=== PATIENT | male | born 1980 | race Caucasian/White ===

== ENCOUNTER 2017-11-13 16:32 | Inpatient (IN) | payer MEDICAID ==
[~2017-11-13] VITALS: Ht 170.2 cm; Wt 68.0 kg
[~2017-11-13 16:32] MED LIST: DOCU-28 PO; HYDR25SU32 RC; MESA800T3 PO; NO HOME MEDS; ONDA4TAB59 PO; ONDA4TAB6 PO; ONDA8TAB9 PO; OXYC5CAP19 PO
[2017-11-13] MEDS ORDERED: acetaminophen 325mg tablet PO STA (16:42)
[2017-11-13] MEDS ORDERED: oseltamivir phos 75mg capsule PO ONE (16:45)
[2017-11-13] MEDS ORDERED: normal saline 1000ML IV soln IV ONE (16:45)
[2017-11-13 17:15] LABS: BASOPHILS # (AUTO) 0.1 X10'3 (0-0.2); BASOPHILS % (AUTO) 0.6 % (0-1); EOSINOPHILS % (AUTO) 0.3 % (0-6); HEMATOCRIT 38.4 % (42.0-52.0); HEMOGLOBIN 13.1 g/dl (14.0-17.9); LYMPHOCYTES # (AUTO) 1.4 X10'3 (1.1-4.8); LYMPHOCYTES % (AUTO) 13.8 % (21-51); MEAN CORPUSCULAR HEMOGLOBIN 28.6 PG (27.0-31.0); MEAN CORPUSCULAR HGB CONC 34.2 % (33.0-36.5); MEAN CORPUSCULAR VOLUME 83.8 FL (78-98); MEAN PLATELET VOLUME 7.5 FL (7.4-10.4); MONOCYTES # (AUTO) 0.7 X10'3 (0-0.9); MONOCYTES % (AUTO) 6.9 % (2-12); NEUTROPHILS # (AUTO) 7.9 X10'3 (1.8-7.7); NEUTROPHILS % (AUTO) 78.4 % (42-75); PLATELET COUNT 287 X10'3 (140-440); RED BLOOD COUNT 4.58 X10'6 (4.70-6.10); RED CELL DISTRIBUTION WIDTH 14.1 % (11.5-14.5); WHITE BLOOD COUNT 10.1 X10'3 (4.5-11.0)
[2017-11-13 17:27] LABS: ALANINE AMINOTRANSFERASE 72 U/L (12-78); ALBUMIN 3.6 G/DL (3.4-5.0); ALBUMIN/GLOBULIN RATIO 0.9 (1.1-1.5); ALKALINE PHOSPHATASE 95 IU/L (46-116); ANION GAP 7 (8-16); ASPARTATE AMINO TRANSFERASE 41 U/L (10-37); BILIRUBIN,TOTAL 0.4 MG/DL (0.1-1.0); BLOOD UREA NITROGEN 12 MG/DL (7-18); BUN/CREATININE RATIO 13.5 (5.4-32.0); CALCIUM 8.5 MG/DL (8.5-10.1); CHLORIDE 95 MMOL/L (99-107); CREATININE 0.89 MG/DL (0.60-1.10); GLUCOSE 100 MG/DL (70-104); POTASSIUM 3.4 MMOL/L (3.5-5.1); SODIUM 131 MMOL/L (135-145); TOTAL CARBON DIOXIDE 29.4 MMOL/L (24-32); TOTAL PROTEIN 7.7 G/DL (6.4-8.2); eGFR > 90 ML/MIN
[2017-11-13] MEDS ORDERED: levoFLOXACIN-Levaquin 750MG/D5 150 ML IV STA (18:53)
[2017-11-13] MEDS ORDERED: azithromycin/NS 500mg/250ml 250 ML IV ONE (18:55)
[2017-11-13] MEDS ORDERED: normal saline 1000ML IV soln IVB ONE (18:55)
[2017-11-13] MEDS ORDERED: HYDROmorphone inj. 0.5 MG/0.5 ML DISP.SYRIN IV PRN ×2 (20:35)
[2017-11-13] MEDS ORDERED: magnesium hydroxide 30ml (MOM) UD suspension PO PRN (20:35)
[2017-11-13] MEDS ORDERED: diphenhydrAMINE 25mg capsule PO PRN (20:35)
[2017-11-13] MEDS ORDERED: metoclopramide 5 mg/ml inj IV PRN (20:35)
[2017-11-13] MEDS ORDERED: morphine 2 MG/ML inj. syringe IV PRN ×2 (20:35)
[2017-11-13] MEDS ORDERED: mag hydrox/Alum hydrox/simeth 30ml oral suspension PO PRN (20:35)
[2017-11-13] MEDS ORDERED: HYDROcodone/acetaminophen 10/325mg tab PO PRN (20:35)
[2017-11-13] MEDS ORDERED: diphenhydrAMINE 50 mg/ml inj IV PRN (20:35)
[2017-11-13] MEDS ORDERED: HYDROcodone/acetaminophen 5mg/325mg tablet PO PRN (20:35)
[2017-11-13] MEDS ORDERED: bisacodyl 10mg suppository rectal RC PRN (20:35)
[2017-11-13] MEDS ORDERED: ondansetron/PF 4mg/2ml inj IV PRN (20:35)
[2017-11-13] MEDS ORDERED: acetaminophen 325mg tablet PO PRN ×2 (20:35)
[2017-11-13] MEDS: K and/or MAG REPLACEMENT MC SCH (20:40)
[2017-11-13] MEDS ORDERED: potassium Cl 40MEQ/NS 500ml 500 ML IV PRN ×2 (20:40)
[2017-11-13] MEDS ORDERED: potassium Cl 20 mEq SR tablet PO PRN ×2 (20:40)
[2017-11-13] MEDS ORDERED: ondansetron 4mg rapidly disintigrating tab PO PRN ×2 (20:45)
[2017-11-13] MEDS: normal saline 1000ml 1,000 ML IV SCH (20:49)
[2017-11-13] MEDS ORDERED: ondansetron 4mg rapidly disintigrating tab PO SCH (20:50)
[2017-11-13] MEDS ORDERED: oxyCODONE IR 5mg (immed. release) tablet PO PRN (20:50)
[2017-11-13] MEDS ORDERED: temazepam 15mg capsule PO PRN (21:00)
[2017-11-13 21:16] LABS: MAGNESIUM 1.5 MG/DL (1.5-2.4); PHOSPHORUS 3.2 MG/DL (2.3-4.5)
[2017-11-13 23:00] VITALS: BP 96/62
[2017-11-13] MEDS: cefTRIAXone 1g/NS 100ml IVPB 100 ML IV SCH (23:23)
[2017-11-14 05:37] LABS: CLARITY,URINE CLEAR (Clear); COLOR,URINE YELLOW (Yellow); GLUCOSE, URINE NEGATIVE (Neg); KETONES,URINE NEGATIVE (Neg); LEUKOCYTE ESTERASE ,URINE NEGATIVE (Neg); NITRITES, URINE NEGATIVE (Neg); OCCULT BLOOD,URINE NEGATIVE (Neg); PROTEIN,URINE NEGATIVE (Neg); UROBILINOGEN,URINE 0.2 E.U/dL (0.2-1.0)
[2017-11-14 05:43] LABS: UA COLLECTION TYPE CLN CATCH MIDSTREAM
[2017-11-14] MEDS: normal saline 1000ml 1,000 ML IV SCH ×2 (05:51→15:01)
[2017-11-14 05:52] LABS: URINE AMPHETAMINE SCREEN POSITIVE (Neg); URINE BARBITUATE SCREEN NEGATIVE (Neg); URINE BENZODIAZEPINES SCREEN NEGATIVE (Neg); URINE CANNABINOID SCREEN NEGATIVE (Neg); URINE COCAINE SCREEN NEGATIVE (Neg); URINE METHADONE SCREEN NEGATIVE (Neg); URINE OPIATE SCREEN POSITIVE (Neg); URINE PHENCYCLIDINE SCREEN NEGATIVE (Neg)
[2017-11-14 06:46] LABS: BASOPHILS % (AUTO) 0.1 % (0-1); EOSINOPHILS # (AUTO) 0.2 X10'3 (0-0.9); EOSINOPHILS % (AUTO) 1.4 % (0-6); HEMOGLOBIN 11.6 g/dl (14.0-17.9); LYMPHOCYTES # (AUTO) 1.7 X10'3 (1.1-4.8); LYMPHOCYTES % (AUTO) 15.8 % (21-51); MEAN CORPUSCULAR HEMOGLOBIN 28.3 PG (27.0-31.0); MEAN CORPUSCULAR VOLUME 83.3 FL (78-98); MEAN PLATELET VOLUME 7.6 FL (7.4-10.4); MONOCYTES # (AUTO) 0.8 X10'3 (0-0.9); MONOCYTES % (AUTO) 7.5 % (2-12); NEUTROPHILS % (AUTO) 75.2 % (42-75); PLATELET COUNT 239 X10'3 (140-440); RED BLOOD COUNT 4.08 X10'6 (4.70-6.10); RED CELL DISTRIBUTION WIDTH 14.1 % (11.5-14.5); WHITE BLOOD COUNT 10.6 X10'3 (4.5-11.0)
[2017-11-14 07:07] LABS: ALBUMIN 2.6 G/DL (3.4-5.0); ALBUMIN/GLOBULIN RATIO 0.7 (1.1-1.5); ANION GAP 6 (8-16); ASPARTATE AMINO TRANSFERASE 27 U/L (10-37); BILIRUBIN,TOTAL 0.3 MG/DL (0.1-1.0); BLOOD UREA NITROGEN 8 MG/DL (7-18); BUN/CREATININE RATIO 10.3 (5.4-32.0); CHLORIDE 102 MMOL/L (99-107); CREATININE 0.78 MG/DL (0.60-1.10); GLUCOSE 100 MG/DL (70-104); POTASSIUM 3.9 MMOL/L (3.5-5.1); SODIUM 137 MMOL/L (135-145); TOTAL CARBON DIOXIDE 28.6 MMOL/L (24-32); TOTAL PROTEIN 6.1 G/DL (6.4-8.2); eGFR > 90 ML/MIN
[2017-11-14 07:08] LABS: ALANINE AMINOTRANSFERASE 51 U/L (12-78); ALKALINE PHOSPHATASE 70 IU/L (46-116)
[2017-11-14] MEDS: docusate sod 100mg capsule PO SCH ×2 (07:54→20:00)
[2017-11-14] MEDS: oseltamivir phos 75mg capsule PO SCH ×2 (07:54→21:18)
[2017-11-14] MEDS: cefTRIAXone 1g/NS 100ml IVPB 100 ML IV SCH ×2 (07:54→21:19)
[2017-11-14] MEDS: pantoprazole 40mg Tablet.DR PO SCH (07:54)
[2017-11-14] MEDS: heparin, porcine 5000 units/ml vial SQ SCH ×2 (07:55→20:00)
[2017-11-14] MEDS: nicotine 21mg patch - 24 hr TD SCH (07:56)
[2017-11-14 08:00] VITALS: BP 119/70
[2017-11-14] MEDS: K and/or MAG REPLACEMENT MC SCH (08:00)
[2017-11-14] MEDS: mesalamine 400 mg capsule.DR PO SCH ×4 (08:36→21:17)
[2017-11-14 11:00] VITALS: BP 102/67
[2017-11-14] MEDS: lactobacillus rhamnosus 10,000 MMU CELLS/CAPSULE PO SCH (17:00)
[2017-11-14 18:00] VITALS: BP 115/74
[2017-11-14] MEDS ORDERED: azithromycin 250mg tablet PO SCH (21:00)
[2017-11-15] VITALS: BP 100/66
[2017-11-15 05:37] LABS: BASOPHILS % (AUTO) 0.3 % (0-1); EOSINOPHILS % (AUTO) 0.1 % (0-6); HEMATOCRIT 36.7 % (42.0-52.0); HEMOGLOBIN 12.6 g/dl (14.0-17.9); LYMPHOCYTES # (AUTO) 1.8 X10'3 (1.1-4.8); MEAN CORPUSCULAR HEMOGLOBIN 28.8 PG (27.0-31.0); MEAN CORPUSCULAR HGB CONC 34.3 % (33.0-36.5); MEAN CORPUSCULAR VOLUME 83.9 FL (78-98); MEAN PLATELET VOLUME 7.8 FL (7.4-10.4); MONOCYTES # (AUTO) 0.6 X10'3 (0-0.9); NEUTROPHILS # (AUTO) 7.7 X10'3 (1.8-7.7); NEUTROPHILS % (AUTO) 75.6 % (42-75); PLATELET COUNT 263 X10'3 (140-440); RED BLOOD COUNT 4.38 X10'6 (4.70-6.10); RED CELL DISTRIBUTION WIDTH 14.9 % (11.5-14.5); WHITE BLOOD COUNT 10.2 X10'3 (4.5-11.0)
[2017-11-15] MEDS: normal saline 1000ml 1,000 ML IV SCH (05:39)
[2017-11-15 06:29] LABS: ALANINE AMINOTRANSFERASE 48 U/L (12-78); ALBUMIN 2.9 G/DL (3.4-5.0); ALBUMIN/GLOBULIN RATIO 0.7 (1.1-1.5); ALKALINE PHOSPHATASE 74 IU/L (46-116); ANION GAP 8 (8-16); ASPARTATE AMINO TRANSFERASE 25 U/L (10-37); BILIRUBIN,TOTAL 0.2 MG/DL (0.1-1.0); BLOOD UREA NITROGEN 12 MG/DL (7-18); BUN/CREATININE RATIO 15.4 (5.4-32.0); CALCIUM 8.5 MG/DL (8.5-10.1); CHLORIDE 104 MMOL/L (99-107); CREATININE 0.78 MG/DL (0.60-1.10); GLUCOSE 100 MG/DL (70-104); POTASSIUM 4.2 MMOL/L (3.5-5.1); SODIUM 141 MMOL/L (135-145); TOTAL CARBON DIOXIDE 28.9 MMOL/L (24-32); eGFR > 90 ML/MIN
[2017-11-15 07:00] VITALS: BP 118/70
[2017-11-15] MEDS: lactobacillus rhamnosus 10,000 MMU CELLS/CAPSULE PO SCH (07:30)
[2017-11-15] MEDS: nicotine 21mg patch - 24 hr TD SCH (08:00)
[2017-11-15] MEDS: K and/or MAG REPLACEMENT MC SCH (08:00)
[2017-11-15] MEDS ORDERED: AZI25OT PO (08:56)
[2017-11-15] MEDS: heparin, porcine 5000 units/ml vial SQ SCH (09:14)
[2017-11-15] MEDS: docusate sod 100mg capsule PO SCH (09:14)
[2017-11-15] MEDS: mesalamine 400 mg capsule.DR PO SCH (09:14)
[2017-11-15] MEDS: oseltamivir phos 75mg capsule PO SCH (09:15)
[2017-11-15] MEDS: cefTRIAXone 1g/NS 100ml IVPB 100 ML IV SCH (09:15)
[2017-11-15] MEDS: pantoprazole 40mg Tablet.DR PO SCH (10:22)
[2017-11-16 14:30] VITALS: BP 127/67
== END 2017-11-15 12:45 | disposition home or self-care (01) | DRG 720 ==
LOC: ER 16:33 → ED HOLD 20:34 → MED 3N 22:40
PROVIDERS: ADMIT Family Medicine; ATTEND Internal Medicine
DX: A41.9 Sepsis, unspecified organism (principal); J11.00 Influenza due to unidentified influenza virus with unspecified type of pneumonia; E87.1 Hypo-osmolality and hyponatremia; K50.90 Crohn's disease, unspecified, without complications; E86.1 Hypovolemia; E87.6 Hypokalemia; F15.90 Other stimulant use, unspecified, uncomplicated; F17.210 Nicotine dependence, cigarettes, uncomplicated; B19.20 Unspecified viral hepatitis C without hepatic coma; G89.29 Other chronic pain; F12.90 Cannabis use, unspecified, uncomplicated; Z90.49 Acquired absence of other specified parts of digestive tract; Z72.89 Other problems related to lifestyle
CPT/HCPCS: 36415; 71045; 80053; 80305; 81003; 83605; 83735; 83880; 84100; 84443; 85025; 87040; 87070; 87502; 87503; 93005; 94667; 94760; 96365; 96366; 99285; J0456; J0696; J1644; J1956; J7030